=== PATIENT | female | born 1990 | race African-American/Black ===

== ENCOUNTER → 2016-03-24 | Outpatient (CLI) | payer OTHER ==
[2016-03-24 17:31] LABS: CH 28.4; HDW 2.88; HGB 10.7 gm/dL (11.4-16.0); Hypochromasia Moderate; MCH 29.1 pg (25.0-35.0); MCHC 31.4 g/dL (31.0-37.0); MCV 92.5 fL (80.0-100.0); Mean Platelet Volume 9.2; RBC 3.67 m/uL (3.80-5.40); RDW 14.4 % (11.5-15.5); WBC 9.4 k/uL (3.8-10.6)
[2016-03-24 17:35] LABS: Glucose 101 mg/dL (74-99); Non-African American GFR(MDRD) >60 (>60 ml/min/1.73 sqM)
[2016-03-24 18:05] LABS: Hepatitis B Surface Ag Index 0.05
[2016-03-25 07:23] LABS: HIV-1/HIV-2 Ab Screen NONREAC (NON REAC)
== END | disposition home or self-care (01) ==
LOC: LABWHC1 15:40
PROVIDERS: ATTEND Obstetrics & Gynecology
DX: O26.813 Pregnancy related exhaustion and fatigue, third trimester (principal); Z3A.00 Weeks of gestation of pregnancy not specified
CPT/HCPCS: 36415; 82565; 82947; 82950; 85027; 86762; 86780; 86850; 86900; 86901; 87340; 87389

== ENCOUNTER 2016-03-28 10:13 | Inpatient (IN) | payer OTHER ==
[2016-03-28] MEDS ORDERED: AMPICILLIN 2,000 MG in SODIUM CHLORIDE 0.9% 100 ML IVPB STA (10:47)
[2016-03-28] MEDS ORDERED: OXYTOCIN 10 UNIT/ML 1 ML VIAL IM PRN (10:47)
[2016-03-28] MEDS ORDERED: TERBUTALINE 1 MG/ML VIAL SQ PRN (10:47)
[2016-03-28] MEDS ORDERED: LIDOCAINE 1% (PF) 10 MG/ML (30 ML SDV) SQ PRN (10:47)
[2016-03-28] MEDS ORDERED: METHYLERGONOVINE 0.2 MG/ML 1 ML AMP IM PRN (10:47)
[2016-03-28] MEDS ORDERED: CARBOPROST TROMETHAMINE 250 MCG/ML 1 ML AMP IM PRN (10:47)
[2016-03-28] MEDS ORDERED: CITRIC ACID-SODIUM CITRATE 15 ML CUP PO ONE (10:51)
[2016-03-28] MEDS ORDERED: LACTATED RINGERS 1,000 ML IV SCH (11:00)
[2016-03-28 11:08] LABS: Basophils % (A) 0 %; CH 28.8; CHCM 31.7; Eosinophils # (A) 0.1 k/uL (0-0.7); Eosinophils % (A) 2 %; HCT 34.7 % (34.0-46.0); HDW 3.06; HGB 10.7 gm/dL (11.4-16.0); Hypochromasia Slight; Luc # (Auto) 0.23; Luc % (Auto) 3; Lymphocytes # (A) 2.2 k/uL (1.0-4.8); Lymphocytes % (A) 25 %; MCH 28.1 pg (25.0-35.0); MCHC 30.8 g/dL (31.0-37.0); MCV 91.5 fL (80.0-100.0); Mean Platelet Volume 9.5; Monocytes # (A) 0.6 k/uL (0-1.0); Monocytes % (A) 6 %; Neutrophils # (A) 5.7 k/uL (1.3-7.7); Neutrophils % (A) 65 %; RBC 3.79 m/uL (3.80-5.40); RDW 14.8 % (11.5-15.5); WBC 8.8 k/uL (3.8-10.6); WBC (Perox) 9.26
[2016-03-28 11:13] VITALS: BMI 30.7
[2016-03-28] MEDS ORDERED: ceFAZolin 2 GM in SODIUM CHLORIDE 0.9% 100 ML IVPB ONE (11:28)
--- NOTE | 2016-03-28 12:05 | P.HPOB ---
History of Present Illness H&P Date: 03/28/16 Chief Complaint: Intrauterine at 39 weeks: Previous 2 Patient is a 25-year-old at 39 weeks 6 days gestation who arrives for repeat low transverse section. Her course had been, did buy her missing several appointments. She was scheduled for the section very late but all questions are answered for her prior to proceeding to the operating room and she is stable at this time. Her vital signs are stable and she is afebrile. Pertinent labs do include O+ blood type Rh antibody was negative rubella was immune. Hepatitis B surface antigen and group B strep were both negative. On physical exam her heart is regular, lungs are clear, extremities are without pain. Abdomen soft uterus is soft gravid. heart tones are in the 140s and are reactive. Assessment intrauterine at term with previous sections. Plan repeat low transverse section. Review of Systems All systems: negative Constitutional: Denies chills, Denies fever Eyes: denies blurred vision, denies pain Ears, nose, mouth and throat: Denies headache, Denies sore throat Cardiovascular: Denies chest pain, Denies shortness of breath Respiratory: Denies cough Gastrointestinal: Denies abdominal pain, Denies diarrhea, Denies nausea, Denies vomiting Genitourinary: Denies dysuria, Denies hematuria Musculoskeletal: Denies myalgias Integumentary: Denies pruritus, Denies rash Neurological: Denies numbness, Denies weakness Psychiatric: Denies anxiety, Denies depression Endocrine: Denies fatigue, Denies weight change Past Medical History Past Medical History: Asthma Additional Past Medical History / Comment(s): Chronic back History of Any Multi-Drug Resistant Organisms: MRSA Date of last positivie culture/infection: 08/09/15 MDRO Source:: VAGINAL ABSCESS Past Surgical History: Section Additional Past Surgical History / Comment(s): 3 Past Anesthesia/Blood Transfusion Reactions: No Reported Reaction Past Psychological History: Anxiety, Depression Smoking Status: Current every day smoker Past Alcohol Use History: None Reported, Rare Additional Past Alcohol Use History / Comment(s): Patient is a smoker of one half pack per day since she was 17 years of age. She denies any medical marijuana, marijuana, street drug use. She does drink alcohol on a rare basis. She currently lives with her boyfriend and her 3 children ages 32 through 5. Her children are currently staying with her mother. Past Drug Use History: None Reported - Past Family History Father Family Medical History: No Reported History Additional Family Medical History / Comment(s): Father is alive at age 46 with no major medical problems. Mother Family Medical History: No Reported History, Diabetes Mellitus, Thyroid Disorder Additional Family Medical History / Comment(s): Mother is alive at age 50 with history of diabetes, thyroid disorder, mood disorder. Brother(s) Additional Family Medical History / Comment(s): Patient has 3 brothers and one at age 5 from a 4 persaud accident. Sister(s) Additional Family Medical History / Comment(s): Patient has one sister with history of benign tumor removed from her knee, possible Damon's cyst. Medications and Allergies Allergies Allergy/AdvReac Type Severity Reaction Status Date / Time No Known Allergies Allergy Verified 03/28/16 10:41 Exam Osteopathic Statement: *. No significant issues noted on an osteopathic structural exam other than those noted in the History and Physical/Consult. - Vital Signs Vital signs: Vital Signs Temp Pulse Resp BP 03/28/16 10:41 97.2 F L 122 H 16 112/64 Intake and Output 03/27/16 03/28/16 03/28/16 22:59 06:59 14:59 Other: Weight 83.915 kg Patient Weight 03/29/16 06:59 Weight 83.915 kg - OBG Physical Exam Breast: both: normal (no masses) Abdomen: bowel sounds normal, no diffuse tenderness, no bruit present, no guarding noted, no hepatomegaly, no splenomegaly, no mass Vulva: both: normal Vagina: normal moisture, no discharge Cervix: no lesion, no discharge Uterus: normal size, normal contour Adnexa: both: normal Anus/Rectum: normal perianal skin, no rectal mass, no hemorrhoids, heme negative Results Result Diagrams: 03/28/16 10:40 Abnormal Lab Results - Last 24 Hours (Table) 03/28/16 Range/Units 10:40 RBC 3.79 L (3.80-5.40) m/uL Hgb 10.7 L (11.4-16.0) gm/dL MCHC 30.8 L (31.0-37.0) g/dL
[2016-03-28] MEDS ORDERED: ONDANSETRON 4 MG/2 ML VIAL ONE (12:16)
[2016-03-28] MEDS ORDERED: PHENYLEPHRINE-0.9% NACL SYG 1 MG/10 ML SYRINGE ONE (12:16)
[2016-03-28] MEDS ORDERED: KETOROLAC 30 MG/ML 1 ML VIAL ONE (12:16)
[2016-03-28] MEDS ORDERED: OXYTOCIN 10 UNIT/ML 1 ML VIAL IM ONE (12:16)
[2016-03-28] MEDS ORDERED: MORPHINE SULFATE (PF) 0.3 MG/0.3 ML SYR ONE (12:16)
[2016-03-28] MEDS ORDERED: NALBUPHINE 10 MG/ML AMPUL ONE (12:16)
[2016-03-28] MEDS ORDERED: ePHEDrine 50 MG/ML 1 ML AMP ONE (12:16)
[2016-03-28] MEDS ORDERED: NALBUPHINE 10 MG/ML AMPUL IV PRN (12:41)
[2016-03-28] MEDS ORDERED: MORPHINE SULFATE 4 MG/ML SYRINGE IVP PRN (12:41)
[2016-03-28] MEDS ORDERED: NALOXONE 0.4 MG/ML 1 ML VIAL IV PRN ×2 (12:41→13:30)
[2016-03-28] MEDS ORDERED: diphenhydrAMINE 50 MG/ML 1 ML VIAL IVP PRN ×3 (12:41→13:25)
[2016-03-28] MEDS ORDERED: KETOROLAC 30 MG/ML 1 ML VIAL IVP PRN ×2 (12:41→13:25)
[2016-03-28] MEDS ORDERED: ONDANSETRON 4 MG/2 ML VIAL IVP PRN ×2 (12:41→13:25)
--- NOTE | 2016-03-28 13:08 | P.OP ---
Date of Procedure: 03/28/16 Preoperative Diagnosis: Intrauterine at term previous sections Postoperative Diagnosis: Same with very firm scarring of the fascial layer and peritoneum bilateral ovarian cysts Procedure(s) Performed: Repeat low transverse section Anesthesia: spinal Surgeon: Gamaliel Kay Reconciling Clerk #1: Kieran Lu Estimated Blood Loss (ml): 800 IV fluids (ml): 1,500 Urine output (ml): 200 Pathology: other (Placenta) Condition: stable Disposition: floor Operative Findings: Significant scarring of the peritoneum and fascia making it difficult to create a opening large enough for the head. Ultimately we did use vacuum assist for delivery as well as incise the right rectus muscle to divided in the midline about 1 inch in length scores were 9 and 9 at one and 5 minutes and the weight was 7 lbs. 0 oz. this was a baby boy Description of Procedure: Patient was taken to the operating suite where a spinal anesthetic was found to be adequate. She was prepped and draped in the normal sterile fashion and placed in the dorsal supine position with leftward tilt. Initially a Pfannenstiel skin incision was made this incision was then carried through to underlying layer of the fascia was second knife back. She was then nicked in the midline and this opening was extended laterally with Rodgers scissors. Superior and inferior aspect of this incision were then grasped tented up and bluntly and sharply dissected off the rectus muscles significant scarring was noted and the fascia was very hard due to the scarring. Once this was accomplished rectus muscles were then divided the midline and sharp dissection through the peritoneum was made. This opening was then extended superiorly and inferiorly with good visualization of both bowel bladder. Bladder blade was then placed vesicouterine peritoneum was identified very low in the uterus therefore uterus was incised and this incision was and then entered bluntly with hemostat and was extended. Once accomplished attempt were made to deliver the head through this opening however due to tight fascia and musculature with peritoneum we were unable to fully deliver the baby's head. Therefore right rectus muscles what was incised and then vacuum was applied to baby's head it was pumped up into the green zone and with one pull no pop offs lasting less than 10 seconds we're able to deliver the head through the incision. Mouth nares were then bulb suctioned and nuchal cord 1 was easily reduced. Anterior and posterior shoulders were then delivered gentle downward upper traction followed by the remainder the baby. Baby was delivered from left occiput anterior position. Once this was accomplished umbilical cord was clamped and cut in usual fashion an nursery personnel was present to assume care. Placenta was then delivered intact and Pitocin was added to the IV. Uterus was then exteriorized cleared of clots and debris and closed in 2 layers with 0 Vicryl suture. Once excellent hemostasis was obtained blood and debris was suctioned from the posterior cul-de-sac and bilateral ovarian cysts were noted. Cyst on the right side was much larger. There is some question as to whether not these may be dermoids and will be needed to have another ultrasound . Uterus was then reinserted the abdomen and the peritoneal layer was closed with 0 Vicryl suture fascial layer was then closed with 0 Vicryl suture 3-0 Vicryl was used to reapproximate the skin and close the space we did do some undermined to allow the skin to be lax enough to be able to be closed and then was closed with 3-0 Vicryl in a Chacorta needle. Sponge, lap, needle counts were all correct 2. Patient was taken to the recovery room in stable and satisfactory condition.
[2016-03-28] MEDS ORDERED: diphenhydrAMINE 25 MG CAP PO PRN (13:25)
[2016-03-28] MEDS ORDERED: NALOXONE 0.4 MG/ML 10 ML VIAL IVP PRN (13:25)
[2016-03-28] MEDS ORDERED: ZOLPIDEM 5 MG TAB PO PRN (13:25)
[2016-03-28] MEDS ORDERED: SIMETHICONE 80 MG CHEWABLE PO PRN (13:25)
[2016-03-28] MEDS ORDERED: ACETAMINOPHEN TAB 325 MG TAB PO PRN (13:25)
[2016-03-28] MEDS ORDERED: Acetaminophen-Codeine 300-30mg TAB PO PRN (13:25)
[2016-03-28] MEDS ORDERED: diphenhydrAMINE 50 MG CAP PO PRN (13:25)
[2016-03-28] MEDS: METOCLOPRAMIDE 5 MG/ML 2 ML VIAL IVP PRN (18:01)
[2016-03-28] MEDS: LACTATED RINGERS 1,000 ML IV SCH (18:04)
[2016-03-28] MEDS: SENNOSIDES-DOCUSATE SODIUM 1 EACH TAB PO SCH (20:09)
[2016-03-29] MEDS: METOCLOPRAMIDE 5 MG/ML 2 ML VIAL IVP PRN (00:26)
[2016-03-29] MEDS: LACTATED RINGERS 1,000 ML IV SCH (06:35)
[2016-03-29] MEDS: OXYTOCIN 30 UNITS/500 ML NS 30 UNIT in SALINE 1 500ML.BAG IV SCH ×2 (06:36→06:37)
--- NOTE | 2016-03-29 08:09 | P.PNOBGPC ---
Subjective - Subjective Principal diagnosis: Postoperative day 1 Interval history: Patient is doing very well postop day 1 from a repeat section. She is ambulating and she is voiding. She is tolerating her diet. Will plan to increase her diet and switch her over to oral pain medicine today. All the questions are answered for her at this time. She is stable at this time. Her only real complaint is that she is sore. Patient reports: Reports appetite normal, Reports voiding normally : doing well Objective - Vital Signs Latest vital signs: Vital Signs Temp Pulse Resp BP Pulse Ox 03/29/16 04:00 98.3 F 83 16 120/71 03/29/16 00:03 97.4 F L 80 16 118/75 97 03/28/16 20:41 96.0 F L 75 18 116/74 98 03/28/16 17:00 97.4 F L 89 16 128/72 98 03/28/16 15:20 75 16 118/80 03/28/16 14:45 78 16 130/83 98 03/28/16 14:15 74 16 128/77 03/28/16 14:00 89 16 123/69 03/28/16 13:45 86 16 123/65 03/28/16 13:30 84 16 110/62 99 03/28/16 13:15 97.1 F L 95 16 112/61 03/28/16 10:41 97.2 F L 122 H 16 112/64 Intake and Output 03/28/16 03/29/16 03/29/16 22:59 06:59 14:59 Output Total 650 400 Balance -650 -400 Output: Urine 600 400 Uretheral (Sandhu) 100 Emesis 50 Other: # Voids 0 - Exam Lungs: bilateral: normal Chest: Normal S1, Normal S2 Extremities: Present: normal Abdomen: Present: normal appearance, soft. Absent: distention, tenderness Incision: Present: normal, dry, intact Uterus: Present: normal, firm - Labs Labs: Abnormal Lab Results - Last 24 Hours (Table) 03/28/16 Range/Units 10:40 RBC 3.79 L (3.80-5.40) m/uL Hgb 10.7 L (11.4-16.0) gm/dL MCHC 30.8 L (31.0-37.0) g/dL
[2016-03-29 08:10] LABS: Basophils % (A) 0 %; CH 28.5; CHCM 31.2; Eosinophils % (A) 1 %; HCT 26.9 % (34.0-46.0); HDW 3.02; Hypochromasia Moderate; Luc % (Auto) 3; Lymphocytes % (A) 12 %; MCH 29.8 pg (25.0-35.0); MCHC 32.4 g/dL (31.0-37.0); MCV 91.9 fL (80.0-100.0); Monocytes % (A) 5 %; Neutrophils % (A) 80 %; RBC 2.93 m/uL (3.80-5.40); RDW 14.7 % (11.5-15.5); WBC 10.1 k/uL (3.8-10.6); WBC (Perox) 11.02
[2016-03-29 08:11] LABS: Eosinophils # (A) 0.1 k/uL (0-0.7); Luc # (Auto) 0.25; Lymphocytes # (A) 1.2 k/uL (1.0-4.8); Monocytes # (A) 0.5 k/uL (0-1.0)
[2016-03-29 08:27] LABS: HGB 8.7 gm/dL (11.4-16.0)
[2016-03-29] MEDS: Acetaminophen-Codeine 300-30mg TAB PO PRN ×3 (08:56→22:03)
[2016-03-29] MEDS: SENNOSIDES-DOCUSATE SODIUM 1 EACH TAB PO SCH ×2 (08:57→20:05)
--- NOTE | 2016-03-29 15:17 | P.PN ---
Progress Note - Text Date: 03/29/2016 Time:[1451] The patient is status post section Vital signs stable VAS: 0-10 Patient has no complaints of pain. The patient incurred some minimal itching yesterday, this itching is now subsiding. Pain meds to be managed by service.
[2016-03-29] MEDS: IBUPROFEN 600 MG TAB PO PRN (18:15)
[2016-03-30] MEDS: IBUPROFEN 600 MG TAB PO PRN ×4 (02:38→22:44)
[2016-03-30] MEDS: Acetaminophen-Codeine 300-30mg TAB PO PRN ×4 (04:20→19:17)
[2016-03-30] MEDS: SENNOSIDES-DOCUSATE SODIUM 1 EACH TAB PO SCH ×2 (07:27→20:16)
[2016-03-30] MEDS: LACTATED RINGERS 1,000 ML IV SCH (07:45)
--- NOTE | 2016-03-30 08:35 | P.PNOBGPC ---
Subjective - Subjective Principal diagnosis: Postop day 2 Interval history: Overall patient is doing well. She is able to ambulate, and she is tolerating her diet. At this time she really voices no complaints. She is voiding without difficulty and was passing flatus yesterday but has not passed any flatus this morning. She is also not had a bowel movement. Vital signs are however stable and she is afebrile. On physical exam her heart is regular and her lungs are clear. Abdomen is soft uterus is firm below the umbilicus her incision is clean dry and intact and she does have good bowel sounds. Assessment postop day 2. Plan continue current care. Expect discharged home tomorrow Objective - Vital Signs Latest vital signs: Vital Signs Temp Pulse Pulse Resp BP BP Pulse Ox 03/30/16 07:37 98.3 F 90 15 134/78 95 03/29/16 23:40 98.3 F 100 16 125/74 97 03/29/16 16:00 98.7 F 112 H 16 114/68 97 03/29/16 11:41 97.5 F L 90 14 128/84 03/29/16 09:25 97.6 F 92 22 110/77 Intake and Output 03/29/16 03/30/16 03/30/16 22:59 06:59 14:59 Intake Total 300 Balance 300 Intake: Oral 300 Other: # Voids 1 1 1
[2016-03-30] MEDS: OXYTOCIN 30 UNITS/500 ML NS 30 UNIT in SALINE 1 500ML.BAG IV SCH ×2 (20:17→20:18)
[2016-03-31] MEDS: Acetaminophen-Codeine 300-30mg TAB PO PRN ×2 (00:33→08:27)
[2016-03-31] MEDS: SENNOSIDES-DOCUSATE SODIUM 1 EACH TAB PO SCH ×2 (08:27→20:18)
[2016-03-31] MEDS ORDERED: HYDROcodone/APAP 5-325MG 1 EACH TAB PO PRN (08:48)
[2016-03-31] MEDS ORDERED: BISACODYL 10 MG SUPP RECTAL PRN (08:49)
--- NOTE | 2016-03-31 08:51 | P.PNOBGPC ---
Subjective - Subjective Principal diagnosis: Postoperative day 3 Interval history: Patient reports increase in pain today and will she is passing flatus has not had a bowel movement. She is very apprehensive about going home until she's had a bowel movement. We will allow her to have to clock suppositories that she wishes. We'll change pain medicine to [place]. She was explained that the narcotics are constipating and may make her problem worse. But she needs to have better pain control and we'll plan to make that change. Her vital signs are otherwise stable and afebrile. Her heart is regular, lungs are clear abdomen soft incisions intact. There are bowel sounds noted possibly slightly diminished from yesterday but certainly are present. Assessment postop day 3. Plan continue care change the pain medicine on getting up and bleeding more. We 'll also plan to use Dulcolax suppository should she desire. Objective - Vital Signs Latest vital signs: Vital Signs Temp Pulse Pulse Resp BP BP Pulse Ox 03/31/16 08:00 97.5 F L 87 16 127/83 98 03/31/16 00:00 98.7 F 92 18 L 16 129/67 03/30/16 15:51 98.1 F 88 15 129/83 Intake and Output 03/30/16 03/31/16 03/31/16 22:59 06:59 14:59 Intake Total 1500 700 Balance 1500 700 Intake: Oral 1500 700 Other: Voiding Method Toilet Toilet # Voids 3 3 - Exam Lungs: bilateral: normal Chest: Normal S1, Normal S2 Extremities: Present: normal Abdomen: Present: normal appearance, soft. Absent: distention, tenderness Incision: Present: normal, dry, intact Uterus: Present: normal, firm
[2016-03-31] MEDS: IBUPROFEN 600 MG TAB PO PRN (11:53)
[2016-03-31] MEDS: HYDROcodone/APAP 5-325MG 1 EACH TAB PO PRN ×3 (13:09→22:50)
[2016-04-01] MEDS: HYDROcodone/APAP 5-325MG 1 EACH TAB PO PRN (08:11)
[2016-04-01] MEDS: SENNOSIDES-DOCUSATE SODIUM 1 EACH TAB PO SCH (08:12)
--- NOTE | 2016-04-01 08:17 | P.DS ---
Providers Date of admission: 03/28/16 10:13 Expected date of discharge: 04/01/16 Attending physician: Gamaliel Kay Primary care physician: Stated None - Discharge Diagnosis(es) (1) Status post repeat low transverse section Current Visit: Yes Status: Acute (2) UTI (urinary tract infection) Current Visit: Yes Status: Acute Hospital Course: Patient presented for repeat low transverse underwent this procedure without crepitation. Today she says that she feels that she has a bladder infection, hurts to urinate. I'll treat her with Bactrim DS 1 twice daily for 3 days. Her pain is well-controlled and she is tolerating regular diet. Ambulating and voiding also did have a bowel movement yesterday. She denies nausea, vomiting, chest pain, shortness of breath or calf pain. She'll be discharged home postoperative day #4 in stable condition to follow-up with Dr. Kay in 1 week. Plan - Discharge Summary New Discharge Prescriptions: HYDROcodone/APAP 5-325MG [[place] 5-325] 1 tab PO Q4HR PRN #30 tab PRN Reason: Pain Ibuprofen [Motrin] 600 mg PO Q6HR PRN #30 tab PRN Reason: Pain Sulfamethox-Tmp 800-160Mg [Bactrim DS 800-160 mg] 1 each PO BID #6 tab Discharge Medication List [id number] Acid [-U Capsule] 1 each PO DAILY #100 cap 08/08 [Rx] HYDROcodone/APAP 5-325MG [[place] 5-325] 1 tab PO Q4HR PRN #30 tab 03/31/16 [Rx] Ibuprofen [Motrin] 600 mg PO Q6HR PRN #30 tab 03/31/16 [Rx] Sulfamethox-Tmp 800-160Mg [Bactrim DS 800-160 mg] 1 each PO BID #6 tab 04/01/16 [Rx] Follow up Appointment(s)/Referral(s): Gamaliel Kay DO [Doctor of Osteopathic Medicine] - 1 Week Activity/Diet/Wound Care/Special Instructions: No heavy lifting, limit stairs and driving and pelvic rest. If any high temperatures, heavy bleeding, or severe pain call my office Discharge Disposition: HOME SELF-CARE
[2016-04-01] MEDS ORDERED: SULFAMETHOX-TMP 800-160MG 1 EACH TAB PO SCH (09:00)
[2016-04-01 15:49] VITALS: BP 137/85; PULSE 80; RESP 17; TEMP 98.1
== END 2016-04-01 16:04 | disposition home or self-care (01) | DRG 765 ==
LOC: 4FBP 10:13
PROVIDERS: ADMIT Obstetrics & Gynecology; ATTEND Obstetrics & Gynecology
PROC: 10D00Z1 Extraction of Products of Conception, Low, Open Approach (ICD-10-PCS; principal; 2016-03-28 12:00)
DX: O34.211 Maternal care for low transverse scar from previous cesarean delivery (principal); O86.20 Urinary tract infection following delivery, unspecified; F17.200 Nicotine dependence, unspecified, uncomplicated; Z37.0 Single live birth; O99.334 Smoking (tobacco) complicating childbirth; Z3A.39 39 weeks gestation of pregnancy; O69.81X0 Labor and delivery complicated by cord around neck, without compression, not applicable or unspecified
CPT/HCPCS: 85025; 86850; 86900; 86901; 88307

== ENCOUNTER → 2016-05-13 | Outpatient (CLI) | payer OTHER ==
--- NOTE | 2016-05-13 16:39 | US ---
EXAMINATION TYPE: US pelvic complete DATE OF EXAM: 05/13/2016 4:02 PM COMPARISON: NONE CLINICAL HISTORY: [place] Ovarian Cyst N83.201. pain TECHNIQUE: Transabdominal (TA) Date of LMP: unknown; 6 weeks post EXAM MEASUREMENTS: Uterus: 10.4 x 5.7 x 6.6 cm Endometrial Stripe: 0.7 cm Right Ovary: 3.5 x 2.2 x 3.5 cm Left Ovary: 5.6 x 3.3 x 5.6 cm 1. Uterus: Anteverted Bulky post uterus 2. Endometrium: wnl 3. Right Ovary: wnl 4. Left Ovary: 3.8 x 2.6 x 3.9 cm complex cyst 5. Bilateral Adnexa: wnl 6. Posterior cul-de-sac: wnl Bulky post uterus. Complex left ovarian cyst as noted above. Patient opted not to have TV at this time IMPRESSION: Mixed echo left ovarian cyst may represent hemorrhagic cyst, consider follow-up
== END | disposition home or self-care (01) ==
LOC: RADUSWWP 15:41
PROVIDERS: ATTEND Obstetrics & Gynecology
DX: N83.202 Unspecified ovarian cyst, left side (principal); N83.201 Unspecified ovarian cyst, right side
CPT/HCPCS: 76856

== ENCOUNTER → 2016-08-11 | Outpatient (CLI) | payer OTHER ==
--- NOTE | 2016-08-11 10:34 | US ---
EXAMINATION TYPE: US pelvic complete DATE OF EXAM: 08/11/2016 COMPARISON: US CLINICAL HISTORY: N83.20 Prev Left Ovarian Process. Follow up left ovarian cyst, pelvic pain, 5, para 4, history of TECHNIQUE: Transabdominal (TA) Date of LMP: Patient unsure of LMP EXAM MEASUREMENTS: Uterus: 12.1 x 4.5 x 6.0 cm Endometrial Stripe: 0.8 cm Right Ovary: 2.7 x 1.9 x 1.8 cm Left Ovary: 3.5 x 1.9 x 3.8 cm 1. Uterus: anteverted, slightly enlarged at 12.0cm, slightly heterogeneous 2. Endometrium: appears wnl 3. Right Ovary: wnl 4. Left Ovary: wnl 5. Bilateral Adnexa: wnl 6. Posterior cul-de-sac: wnl IMPRESSION: 1. Normal pelvic ultrasound.
== END | disposition home or self-care (01) ==
LOC: RADUSWWP 09:56
PROVIDERS: ATTEND Obstetrics & Gynecology
DX: N83.202 Unspecified ovarian cyst, left side (principal)
CPT/HCPCS: 76856

== ENCOUNTER 2017-10-04 10:19 | Inpatient (IN) | payer OTHER ==
[2017-10-04] MEDS ORDERED: ceFAZolin IN SWFI 2 GM/20 ML SYRINGE IVP ONE (10:40)
[2017-10-04] MEDS ORDERED: CITRIC ACID-SODIUM CITRATE 15 ML CUP PO ONE (10:40)
[2017-10-04 11:01] VITALS: BMI 29.4
[2017-10-04] MEDS: LACTATED RINGERS 1,000 ML IV SCH ×3 (11:07→20:57)
[2017-10-04 11:13] LABS: Anisocytosis Slight; Basophils % (A) 0 %; Eosinophils # (A) 0.1 k/uL (0-0.7); Eosinophils % (A) 2 %; HCT 39.7 % (34.0-46.0); Hypochromasia Marked; Lymphocytes # (A) 2.1 k/uL (1.0-4.8); Lymphocytes % (A) 33 %; MCH 27.6 pg (25.0-35.0); MCHC 30.3 g/dL (31.0-37.0); MCV 91.1 fL (80.0-100.0); Mean Platelet Volume 8.7; Monocytes # (A) 0.3 k/uL (0-1.0); Monocytes % (A) 5 %; Neutrophils # (A) 3.7 k/uL (1.3-7.7); Neutrophils % (A) 58 %; Platelet Count 127 k/uL (150-450); RBC 4.35 m/uL (3.80-5.40); RDW 16.8 % (11.5-15.5); WBC 6.3 k/uL (3.8-10.6)
[2017-10-04] MEDS ORDERED: NALBUPHINE 10 MG/ML VIAL (10ML MDV) ONE (12:11)
[2017-10-04] MEDS ORDERED: ePHEDrine SULFATE/0.9% NACL/PF 50 MG/5 ML SYRINGE IV ONE (12:11)
[2017-10-04] MEDS ORDERED: ONDANSETRON 4 MG/2 ML VIAL ONE (12:11)
[2017-10-04] MEDS ORDERED: OXYTOCIN 10 UNIT/ML 1 ML VIAL ONE (12:11)
[2017-10-04] MEDS ORDERED: MORPHINE SULFATE (PF) 0.3 MG/0.3 ML SYR ONE (12:11)
[2017-10-04] MEDS ORDERED: diphenhydrAMINE 50 MG/ML 1 ML VIAL IVP PRN ×2 (12:58)
[2017-10-04] MEDS ORDERED: ONDANSETRON 4 MG/2 ML VIAL IVP PRN (12:58)
[2017-10-04] MEDS ORDERED: diphenhydrAMINE 50 MG CAP PO PRN (12:58)
[2017-10-04] MEDS ORDERED: ZOLPIDEM 5 MG TAB PO PRN (12:58)
[2017-10-04] MEDS ORDERED: diphenhydrAMINE 25 MG CAP PO PRN (12:58)
[2017-10-04] MEDS ORDERED: METOCLOPRAMIDE 5 MG/ML 2 ML VIAL IVP PRN (12:58)
[2017-10-04] MEDS ORDERED: ACETAMINOPHEN TAB 325 MG TAB PO PRN (12:58)
[2017-10-04] MEDS ORDERED: MEASLES-MUMPS-RUBELLA VACC/PF 12,500 UNIT/0.5 ML VIAL SQ ONE (12:58)
[2017-10-04] MEDS ORDERED: NALOXONE 0.4 MG/ML 1 ML VIAL IV PRN ×2 (12:58→13:34)
--- NOTE | 2017-10-04 13:03 | P.HPOB ---
History of Present Illness H&P Date: 10/04/17 Chief Complaint: Treatment at term: Previous section: Family planning Patient is a 27-year-old at 39 weeks gestation who arrives for repeat section. She's had 4 prior section so she is acutely aware of increased risk for bladder injury and other injuries secondary to scar tissue. Risks/benefits/alternatives were again reviewed with the patient in detail and all questions were answered for her prior to proceeding to the operating room. The Precis course itself has been generally unremarkable and she is feeling well at this time. Her only issue realistically was late for care and having to babies relatively close together. Past Medical History Past Medical History: Asthma Additional Past Medical History / Comment(s): Chronic back History of Any Multi-Drug Resistant Organisms: MRSA Date of last positivie culture/infection: 08/09/15 MDRO Source:: VAGINAL ABSCESS Past Surgical History: Section Additional Past Surgical History / Comment(s): 4 Past Anesthesia/Blood Transfusion Reactions: No Reported Reaction Past Psychological History: Anxiety, Depression Additional Psychological History / Comment(s): history of cutting, states it was a long time ago Smoking Status: Current every day smoker Past Alcohol Use History: Rare Additional Past Alcohol Use History / Comment(s): Patient is a smoker of one half pack per day since she was 17 years of age. She denies any medical marijuana, marijuana, street drug use. She does drink alcohol on a rare basis. She currently lives with her boyfriend and her 4 children. Her children are currently staying with her mother. Past Drug Use History: None Reported - Past Family History Father Family Medical History: No Reported History Additional Family Medical History / Comment(s): Father is alive at age 46 with no major medical problems. Mother Family Medical History: Diabetes Mellitus, Thyroid Disorder Additional Family Medical History / Comment(s): Mother is alive at age 50 with history of diabetes, thyroid disorder, mood disorder. Brother(s) Additional Family Medical History / Comment(s): Patient has 3 brothers and one at age 5 from a 4 persaud accident. Sister(s) Additional Family Medical History / Comment(s): Patient has one sister with history of benign tumor removed from her knee, possible Damon's cyst. Medications and Allergies Home Medications Medication Instructions Recorded Confirmed Type Albuterol Inhaler [Ventolin Hfa 1 - 2 puff INHALATION RT-Q6H PRN 10/04/17 History Inhaler] Allergies Allergy/AdvReac Type Severity Reaction Status Date / Time No Known Allergies Allergy Verified 03/28/16 10:41 Exam Osteopathic Statement: *. No significant issues noted on an osteopathic structural exam other than those noted in the History and Physical/Consult. Vital Signs Temp Pulse Resp BP Pulse Ox 10/04/17 10:24 98.1 F 107 H 16 111/77 100 Intake and Output 10/03/17 10/04/17 10/04/17 22:59 06:59 14:59 Other: Weight 80.286 kg - OBG Physical Exam Breast: both: normal (no masses) Abdomen: bowel sounds normal, no diffuse tenderness, no bruit present, no guarding noted, no hepatomegaly, no splenomegaly, no mass Vulva: both: normal Vagina: normal moisture, no discharge Cervix: no lesion, no discharge Uterus: normal size, normal contour Adnexa: both: normal Anus/Rectum: normal perianal skin, no rectal mass, no hemorrhoids, heme negative Results Result Diagrams: 10/04/17 11:00 Abnormal Lab Results - Last 24 Hours (Table) 10/04/17 Range/Units 11:00 MCHC 30.3 L (31.0-37.0) g/dL RDW 16.8 H (11.5-15.5) % Plt Count 127 L (150-450) k/uL
--- NOTE | 2017-10-04 13:06 | P.OP ---
Date of Procedure: 10/04/17 Preoperative Diagnosis: Intrauterine at term: Previous section: Family planning Postoperative Diagnosis: Same Procedure(s) Performed: Repeat low transverse section with partial bilateral salpingectomy Anesthesia: spinal Surgeon: Gamaliel Kay Meterman #1: Angeline Canchola Estimated Blood Loss (ml): 600 IV fluids (ml): 1,400 Urine output (ml): 100 Pathology: none sent Condition: stable Disposition: floor Operative Findings: Male scores of 8 and 9 at one and 5 minutes respectively and the weight was 7 lbs. 13 oz. Description of Procedure: Patient was taken to the operating suite where a spinal anesthetic was found be adequate. She was prepped and draped in the normal sterile fashion and placed in the dorsal supine position with leftward tilt. Initially a Pfannenstiel skin incision was made this incision was then carried through to the underlying layer of the fashion with the second knife. Fascia was then nicked in the midline and this opening was extended laterally with Rodgers scissors. Superior and inferior aspect of this incision were then grasped tented up and bluntly and sharply dissected off the rectus muscles. Rectus muscles were then divided the midline and sharp dissection through the peritoneum was made. This opening was then extended superiorly and inferiorly with good visualization of both bowel bladder. It should be noted that there was significant amount of scar tissue in the peritoneum and fascial layers due to poor prior sections. Once the peritoneum was developed. Bladder blade was placed. It was noted the bladder appeared low but no clear defining vesicouterine peritoneum layer was identified therefore the incision was made a little higher than normal but still the lower uterine segment well above the bladder. This opening was then fully developed with a hemostat and the incision was extended bluntly. Head was then H medically delivered and mouth and nares were bulb suctioned. Anterior posterior shoulders were then delivered with gentle downward upper traction followed by the remainder the baby. Umbilical cord was then clamped cut usual fashion an nursery personnel was present to assume care. Placenta was then delivered intact and Pitocin was added to the IV. Uterus was then exteriorized cleared of clots and debris and closed in 1 layer with 0 Vicryl suture. Once excellent hemostasis was obtained attention was turned to the fallopian tubes. First the right tube than the left tube had a hemostat grasped on the fallopian tube approximately 3 cm from uterine cornu and a window was created in the mesosalpinx with Bovie cautery. 2 proximal and 2 distal 2-0 silk sutures were then placed and intervening 2 cm segment excised and tips cauterized. Blood and debris was then suctioned from the posterior cul -de-sac and the uterus was reinserted into the abdomen. Peritoneal layer was then approximated with 0 Vicryl suture fascial layer was closed with 0 Vicryl suture one layer of 3-0 Vicryl was placed in the deep subcuticular tissues reapproximate the skin and close space. Skin was then closed with ulices. Sponge, lap, needle counts all correct 2. Patient was then taken to the recovery room in stable and satisfactory condition.
[2017-10-04] MEDS ORDERED: MORPHINE SULFATE 4 MG/ML SYRINGE IVP PRN (13:34)
[2017-10-04] MEDS ORDERED: OXYTOCIN 20 UNITS/1000 ML NS 1,000 ML IV SCH (13:45)
[2017-10-04] MEDS: KETOROLAC 30 MG/ML 1 ML VIAL IVP PRN ×2 (14:34→20:55)
[2017-10-04] MEDS: SENNOSIDES-DOCUSATE SODIUM 1 EACH TAB PO SCH (20:43)
[2017-10-05] MEDS: HYDROcodone/APAP 7.5-325MG 1 EACH TAB PO PRN ×3 (01:39→18:51)
--- NOTE | 2017-10-05 06:03 | P.PNOBGPC ---
Subjective - Subjective Patient reports: Reports appetite normal, Reports voiding normally, Reports pain well controlled, Reports ambulating normally : doing well Objective - Vital Signs Latest vital signs: Vital Signs Temp Pulse Resp BP Pulse Ox 10/05/17 04:00 97.9 F 79 16 121/74 100 10/05/17 02:00 16 10/05/17 00:00 97.4 F L 62 16 122/79 98 10/04/17 22:00 16 98 10/04/17 20:30 97.4 F L 60 16 113/68 98 10/04/17 18:35 95 10/04/17 18:00 16 97 10/04/17 16:26 16 98 10/04/17 16:00 96.3 F L 51 L 16 111/68 98 10/04/17 15:02 97 F L 77 16 128/64 96 10/04/17 14:35 16 97 10/04/17 14:32 74 16 99/58 97 10/04/17 14:02 60 16 106/71 96 10/04/17 13:47 64 16 110/64 100 10/04/17 13:35 16 100 10/04/17 13:32 57 L 16 99/58 93 L 10/04/17 13:17 77 16 96/52 98 10/04/17 13:02 97.3 F L 16 99/58 97 10/04/17 10:24 98.1 F 107 H 16 111/77 100 Intake and Output 10/04/17 10/04/17 10/05/17 14:59 22:59 06:59 Intake Total 3600 200 Output Total 700 400 Balance 2900 -200 Intake: Intake, IV Titration 2200 Amount Lactated Ringers 1,000 ml 2200 @ 125 mls/hr IV .Q8H [facility] Rx#:[id number] Oral 200 Blood Product 1400 Output: Urine 100 400 Uretheral (Sandhu) 400 Estimated Blood Loss 600 Other: # Voids 200 1 Weight 80.286 kg - Exam Lungs: bilateral: normal Chest: Normal S1, Normal S2 Extremities: Present: normal Abdomen: Present: normal appearance, soft. Absent: distention, tenderness Incision: Present: normal, dry, intact Uterus: Present: normal, firm - Labs Labs: Abnormal Lab Results - Last 24 Hours (Table) 10/04/17 Range/Units 11:00 MCHC 30.3 L (31.0-37.0) g/dL RDW 16.8 H (11.5-15.5) % Plt Count 127 L (150-450) k/uL Assessment and Plan Assessment: Post operative day #1. Patient is resting without plates. Vital signs are stable and she is afebrile. Uterus is firm nontender and she is having normal lochia. My impression this is a normal postoperative course. Plan is to advance this patient's diet, check a CBC, encourage ambulation, and continue routine postoperative care. (1) Status post repeat low transverse section Current Visit: No Status: Acute Code(s): Z98.891 - HISTORY OF UTERINE SCAR FROM PREVIOUS SURGERY SNOMED Code(s): 581837251
[2017-10-05] MEDS: LACTATED RINGERS 1,000 ML IV SCH ×2 (06:52→12:14)
--- NOTE | 2017-10-05 08:14 | P.PN ---
Progress Note - Text Date: 10/05/2017 Time: 07:02 The patient is status post section Vital signs stable VAS: 0-10 Patient has no complaints of pain. The patient incurred some minimal itching yesterday, this itching is now subsiding. Pain meds to be managed by service.
[2017-10-05] MEDS: SENNOSIDES-DOCUSATE SODIUM 1 EACH TAB PO SCH ×2 (09:10→20:14)
[2017-10-05] MEDS: KETOROLAC 30 MG/ML 1 ML VIAL IVP PRN (09:16)
[2017-10-05 10:51] LABS: Anisocytosis Slight; Basophils % (A) 0 %; Eosinophils # (A) 0.1 k/uL (0-0.7); Eosinophils % (A) 2 %; HCT 32.7 % (34.0-46.0); Hypochromasia Moderate; Lymphocytes # (A) 1.2 k/uL (1.0-4.8); Lymphocytes % (A) 17 %; MCH 27.8 pg (25.0-35.0); MCHC 30.3 g/dL (31.0-37.0); MCV 91.6 fL (80.0-100.0); Mean Platelet Volume 9.7; Monocytes # (A) 0.3 k/uL (0-1.0); Monocytes % (A) 4 %; Neutrophils # (A) 5.3 k/uL (1.3-7.7); Neutrophils % (A) 76 %; Platelet Count 107 k/uL (150-450); RBC 3.57 m/uL (3.80-5.40); RDW 16.7 % (11.5-15.5)
[2017-10-05 10:59] LABS: HGB 9.9 gm/dL (11.4-16.0)
[2017-10-05] MEDS: IBUPROFEN 600 MG TAB PO PRN ×2 (16:22→21:15)
[2017-10-06] MEDS: HYDROcodone/APAP 7.5-325MG 1 EACH TAB PO PRN ×4 (02:16→22:46)
[2017-10-06] MEDS: IBUPROFEN 600 MG TAB PO PRN ×3 (05:56→20:06)
--- NOTE | 2017-10-06 07:25 | P.PNOBGPC ---
Subjective - Subjective Patient reports: Reports appetite normal, Reports voiding normally, Reports pain well controlled, Reports ambulating normally : doing well Objective - Vital Signs Latest vital signs: Vital Signs Temp Pulse Resp BP Pulse Ox 10/06/17 00:00 99 F 91 16 128/79 99 10/05/17 16:00 98.1 F 89 18 124/75 99 10/05/17 12:00 98.0 F 80 18 130/72 98 10/05/17 10:00 18 10/05/17 08:00 97.9 F 89 18 115/70 100 Intake and Output 10/05/17 10/06/17 10/06/17 22:59 06:59 14:59 Intake Total 200 Balance 200 Intake: Oral 200 Other: # Voids 1 - Exam Lungs: bilateral: normal Chest: Normal S1, Normal S2 Extremities: Present: normal Abdomen: Present: normal appearance, soft. Absent: distention, tenderness Incision: Present: normal, dry, intact Uterus: Present: normal, firm - Labs Labs: Abnormal Lab Results - Last 24 Hours (Table) 10/05/17 Range/Units 10:38 RBC 3.57 L (3.80-5.40) m/uL Hgb 9.9 L D (11.4-16.0) gm/dL Hct 32.7 L (34.0-46.0) % MCHC 30.3 L (31.0-37.0) g/dL RDW 16.7 H (11.5-15.5) % Plt Count 107 L (150-450) k/uL Assessment and Plan Assessment: Post operative day #2. Patient is resting without new complaints, she however continues to have significant discomfort from her incision. Vital signs are stable and she is afebrile. Uterus is firm and appropriately tender. Patient is tolerating regular diet and urinating without difficulty. CBC yesterday was normal. Plan is to continue routine postoperative care and will need to stay inpatient probably for another day due to pain issues. (1) Status post repeat low transverse section Current Visit: No Status: Acute Code(s): Z98.891 - HISTORY OF UTERINE SCAR FROM PREVIOUS SURGERY SNOMED Code(s): 565958340
[2017-10-06] MEDS: SENNOSIDES-DOCUSATE SODIUM 1 EACH TAB PO SCH ×2 (07:57→20:06)
[2017-10-07] MEDS: IBUPROFEN 600 MG TAB PO PRN ×3 (02:08→14:47)
[2017-10-07] MEDS: HYDROcodone/APAP 7.5-325MG 1 EACH TAB PO PRN ×2 (04:44→10:56)
[2017-10-07] MEDS: SENNOSIDES-DOCUSATE SODIUM 1 EACH TAB PO SCH (07:47)
[2017-10-07 10:59] VITALS: BP 131/88; PULSE 76; RESP 18; TEMP 98.5
--- NOTE | 2017-10-07 11:29 | P.DS ---
Providers Date of admission: 10/04/17 10:19 Expected date of discharge: 10/07/17 Attending physician: Gamaliel Kay Primary care physician: Stated None Hospital Course: This is a 27-year-old female 6 para 4 at 39-0/7 weeks who presented for repeat scheduled section with tubal ligation. She underwent a repeat low transverse section with bilateral partial salpingectomy on 2017. Her course has been uncomplicated. She did have some issues with pain control that have improved. Lochia is decreasing. She has passed flatus and bowel movement. Pain is fairly well controlled with ibuprofen and [place]. Vital signs are stable. Abdomen is soft with positive bowel sounds 4. Incision is clean dry and intact. Extremities show negative Homans. Impression is status post repeat section with bilateral partial salpingectomy postoperative day #3. Plan is to discharge home today. Routine and postoperative instructions are given. She will be given a prescription for a breast pump. She will also be given prescriptions for [place] and ibuprofen. She has signed the [facility] opioid start taking consent form and maps will be checked prior to prescribing. She is advised to follow up with Dr. Kay in the office in approximately one week and in 6 weeks for a check. Routine postoperative and instructions are given. She is advised to call the office if she has any further questions or concerns prior to her appointment time. Procedures: Repeat low transverse section with bilateral partial salpingectomy on 10/04/2017 Patient Condition at Discharge: Stable Plan - Discharge Summary New Discharge Prescriptions: New HYDROcodone/APAP 7.5-325MG [[place] 7.5-325] 1 each PO Q6H PRN #28 tab PRN Reason: Severe Pain Ibuprofen [Motrin] 600 mg PO Q6HR PRN #60 tab PRN Reason: Mild Pain Or Fever >= 100.5 Continue Albuterol Inhaler [Ventolin Hfa Inhaler] 1 - 2 puff INHALATION RT-Q6H PRN PRN Reason: Dyspnea Discharge Medication List Albuterol Inhaler [Ventolin Hfa Inhaler] 1 - 2 puff INHALATION RT-Q6H PRN [History] HYDROcodone/APAP 7.5-325MG [[place] 7.5-325] 1 each PO Q6H PRN #28 tab 10/07/17 [ Rx] Ibuprofen [Motrin] 600 mg PO Q6HR PRN #60 tab 10/07/17 [Rx] Follow up Appointment(s)/Referral(s): Gamaliel Kay DO [Doctor of Osteopathic Medicine] - 1 Week Activity/Diet/Wound Care/Special Instructions: Instructions 1. Do not begin any exercise program for 3 weeks. 2. Do not resume sexual relations for 3 weeks or longer if uncomfortable. 3. You may take tub baths or showers at any time. 4. You may use tampons if desired after 3 weeks. 5. Keep the area of episiotomy (stitches) clean and dry. 6. If you are not nursing, wear a good fitting, supportive bra during the day and limit fluid intake for at least 1 week to prevent breast engorgement. 7. Call the office, [phone], within the next week to make appointment for your 6 week checkup if it has not already been made. 8. Report any of the following occurrences to the doctor promptly: a. Heavy, excessive bleeding b. Chills, fever c. Burning or frequency of urination d. Pain or redness and breasts if nursing e. Increasing pain or swelling in episiotomy (stitches). In addition to the above instructions, the following additional should be followed: 1. No heavy lifting or straining (exercising) until after 6 week checkup. 2. Keep abdominal incision clean and dry: You may wear a dressing if more comfortable. 3. Make office appointment for 10 days after going home or as instructed by her doctor. Discharge Disposition: HOME SELF-CARE
== END 2017-10-07 15:00 | disposition home or self-care (01) | DRG 766 ==
LOC: 4FBP 10:19
PROVIDERS: ADMIT Obstetrics & Gynecology; ATTEND Obstetrics & Gynecology
PROC: 0UB70ZZ Excision of Bilateral Fallopian Tubes, Open Approach (ICD-10-PCS; 2017-10-04)
PROC: 00HU33Z Insertion of Infusion Device into Spinal Canal, Percutaneous Approach (ICD-10-PCS; 2017-10-04)
PROC: 3E0R3BZ Introduction of Anesthetic Agent into Spinal Canal, Percutaneous Approach (ICD-10-PCS; 2017-10-04)
PROC: 10D00Z1 Extraction of Products of Conception, Low, Open Approach (ICD-10-PCS; principal; 2017-10-04 12:24)
DX: O34.211 Maternal care for low transverse scar from previous cesarean delivery (principal); Z37.0 Single live birth; O99.334 Smoking (tobacco) complicating childbirth; F17.210 Nicotine dependence, cigarettes, uncomplicated; O99.344 Other mental disorders complicating childbirth; F32.9 Major depressive disorder, single episode, unspecified; F41.9 Anxiety disorder, unspecified; O99.52 Diseases of the respiratory system complicating childbirth; J45.909 Unspecified asthma, uncomplicated; Z16.24 Resistance to multiple antibiotics; Z3A.39 39 weeks gestation of pregnancy; O99.62 Diseases of the digestive system complicating childbirth; K21.9 Gastro-esophageal reflux disease without esophagitis; Z30.2 Encounter for sterilization; Z91.5 Personal history of self-harm; Z83.3 Family history of diabetes mellitus; Z81.8 Family history of other mental and behavioral disorders; Z83.49 Family history of other endocrine, nutritional and metabolic diseases
CPT/HCPCS: 85025; 86850; 86900; 86901; 88302

== ENCOUNTER 2019-08-03 12:59 | Emergency (ER) | payer OTHER ==
[2019-08-03 13:06] VITALS: BP 148/75; PULSE 92; RESP 18; TEMP 98.3
[2019-08-03] MEDS ORDERED: KETOROLAC 60 MG/2 ML VIAL IM STA (13:21)
[2019-08-03] MEDS ORDERED: ORPHENADRINE 30 MG/ML 2 ML VIAL IM STA (13:21)
--- NOTE | 2019-08-03 13:27 | ED ---
Back Pain HPI - General Source: patient, RN notes reviewed Mode of arrival: ambulatory Limitations: no limitations <Julio Martins - Last Filed: 08/03/19 13:26> <Cristina Douglas - Last Filed: 08/03/19 14:43> - General Chief Complaint: Back Pain/Injury Stated Complaint: back pain Time Seen by Provider: 08/03/19 13:16 - History of Present Illness Initial Comments: 29-year-old female presents emergency Department chief complaint of low back pain. Patient states pain is worsened over the week. States earlier in the week she moved quickly to grab pill that was falling. She states she twinge her back. Patient does have history of back pain she denies any bowel complaints Retention. She's been working through her symptoms which haven't making symptoms worse. She is employed abdominal pain no dysuria no hematuria denies any chance . Patient has not taken any medications for pain. 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 (Julio Martins) - Related Data Home Medications Medication Instructions Recorded Confirmed Albuterol Inhaler (Mhu) [Ventolin 1 - 2 puff INHALATION RT-Q6H PRN 10/04/17 10/04/17 Hfa Inhaler (Mhu)] Previous Rx's Medication Instructions Recorded HYDROcodone/APAP 7.5-325MG [[place]ayer 1 each PO Q6H PRN #28 tab 10/07/17 7.5-325] Ibuprofen [Motrin] 600 mg PO Q6HR PRN #60 tab 10/07/17 Allergies Allergy/AdvReac Type Severity Reaction Status Date / Time No Known Allergies Allergy Verified 08/03/19 13:01 Review of Systems ROS Other: All systems not noted in ROS Statement are negative. <Julio Martisn - Last Filed: 08/03/19 13:26> ROS Other: All systems not noted in ROS Statement are negative. <Cristina Douglas - Last Filed: 08/03/19 14:43> ROS Statement: Those systems with pertinent positive or pertinent negative responses have been documented in the HPI. Past Medical History Past Medical History: Asthma Additional Past Medical History / Comment(s): Chronic back History of Any Multi-Drug Resistant Organisms: MRSA Date of last positivie culture/infection: 08/09/15 MDRO Source:: VAGINAL ABSCESS Past Surgical History: Section Additional Past Surgical History / Comment(s): 4 Past Anesthesia/Blood Transfusion Reactions: No Reported Reaction Past Psychological History: Anxiety, Depression Smoking Status: Current every day smoker Past Alcohol Use History: Rare Past Drug Use History: None Reported - Past Family History Father Family Medical History: No Reported History Additional Family Medical History / Comment(s): Father is alive at age 46 with no major medical problems. Mother Family Medical History: Diabetes Mellitus, Thyroid Disorder Additional Family Medical History / Comment(s): Mother is alive at age 50 with history of diabetes, thyroid disorder, mood disorder. Brother(s) Additional Family Medical History / Comment(s): Patient has 3 brothers and one at age 5 from a 4 persaud accident. Sister(s) Additional Family Medical History / Comment(s): Patient has one sister with history of benign tumor removed from her knee, possible Damon's cyst. <Julio Martins - Last Filed: 08/03/19 13:26> General Exam Limitations: no limitations General appearance: alert, in no apparent distress Head exam: Present: atraumatic, normocephalic, normal inspection Eye exam: Present: normal appearance, PERRL, EOMI. Absent: scleral icterus, conjunctival injection, periorbital swelling ENT exam: Present: normal exam, normal oropharynx, mucous membranes moist Neck exam: Present: normal inspection, full ROM. Absent: tenderness, meningismus, lymphadenopathy Respiratory exam: Present: normal lung sounds bilaterally. Absent: respiratory distress, wheezes, rales, rhonchi, stridor Cardiovascular Exam: Present: regular rate, normal rhythm, normal heart sounds. Absent: systolic murmur, diastolic murmur, rubs, gallop, clicks GI/Abdominal exam: Present: soft, normal bowel sounds. Absent: distended, tenderness, guarding, rebound, rigid Back exam: Present: normal inspection, full ROM, tenderness, muscle spasm, paraspinal tenderness, vertebral tenderness. Absent: CVA tenderness (R), CVA tenderness (L) Neurological exam: Present: alert, oriented X3, CN II-XII intact, reflexes normal. Absent: motor sensory deficit Skin exam: Present: warm, dry, intact, normal color. Absent: rash <Julio Martins - Last Filed: 08/03/19 13:26> <Cristina Douglas - Last Filed: 08/03/19 14:43> - General Exam Comments Initial Comments: General: The patient is awake and alert, in no distress, and does not appear acutely ill. Eye: Pupils are equal, round and reactive to light, extra-ocular movements are intact. No nystagmus. There is normal conjunctiva bilaterally. No signs of icterus. GI: NO CVA tenderness. Musculoskeletal: Pain to palpation fo the right lower paravertebral muscles. (- ) SLR b/l. Normal ROM, no tenderness of the LE b/l. Strength 5/5 of the LE b/l. Sensation intact of the LE including the saddle region. Neurological: A&O x 3. CN II-XII intact, There are no obvious motor or sensory deficits. Coordination appears grossly intact. Speech is normal. Skin: Skin is warm and dry and no rashes or lesions are noted. No lesions in area of pain. Psychiatric: Cooperative, appropriate mood & affect, normal judgment. (Cristina Douglas) Course <Cristina Douglas - Last Filed: 08/03/19 14:43> Vital Signs 08/03/19 13:01 Temperature 98.3 F Pulse Rate 92 Respiratory 18 Rate Blood Pressure 148/75 O2 Sat by Pulse 99 Oximetry - Reevaluation(s) Reevaluation #1: Signed out to me, Cristina Douglas PA-C at 2PM, urinalysis was penidng. Disposition at that time by original provider was mechanical back pain to be treated symptomatically with urinalysis to r/o urinary/renal cause (RBC/WBC), UA is unremarkable. Patient states that her discomfort has improved. Patient recommended rest for today and tomorrow, symptomatic treatment with heat/ice alternation and taking ibuprofen and tylenol. 08/03/19 14:38 (Cristina Douglas) Medical Decision Making - Lab Data Lab Results 08/03/19 08/03/19 Range/Units 13:51 13:51 Urine Color Yellow Urine Appearance Clear (Clear) Urine pH 5.0 (5.0-8.0) Ur Specific [place] 1.025 (1.001-1.035) Urine Protein Negative (Negative) Urine Glucose (UA) Negative (Negative) Urine Ketones Negative (Negative) Urine Blood Negative (Negative) Urine Nitrite Negative (Negative) Urine Bilirubin Negative (Negative) Urine Urobilinogen <2.0 (<2.0) mg/dL Ur Leukocyte Esterase Negative (Negative) Urine HCG, Qual Not Detected (Not Detectd) Disposition <Julio Martins M - Last Filed: 08/03/19 13:26> Is patient prescribed a controlled substance at d/c from ED?: No Time of Disposition: 14:41 <Cristina Douglas - Last Filed: 08/03/19 14:43> Clinical Impression: Low back pain, Low back strain Disposition: HOME SELF-CARE Condition: Good Instructions (If sedation given, give patient instructions): Acute Low Back Pain (ED) Additional Instructions: Please use medication as discussed. Please follow-up with family doctor in the next 2 days. Please return to emergency room if the symptoms increase or worsen or for any other concerns. Referrals: None,Stated [Primary Care Provider] - 1-2 days
[2019-08-03 14:30] LABS: Color,Urine Yellow
[2019-08-03 14:31] LABS: Appearance,Urine Clear (Clear)
[2019-08-03 14:32] LABS: Protein,Urine Negative (Negative); Specific Gravity,Urine 1.025 (1.001-1.035)
[2019-08-03 14:33] LABS: Bilirubin,Urine Negative (Negative); Blood,Urine Negative (Negative); Glucose,Urine (UA) Negative (Negative); Ketones,Urine Negative (Negative); Leukocyte Esterase,Urine Negative (Negative); Nitrite,Urine Negative (Negative); Urobilinogen,Urine <2.0 mg/dL (<2.0)
== END 2019-08-03 15:06 | disposition home or self-care (01) ==
LOC: EC 12:59
DX: S39.012A Strain of muscle, fascia and tendon of lower back, initial encounter (principal); J45.909 Unspecified asthma, uncomplicated; F17.200 Nicotine dependence, unspecified, uncomplicated; Z86.14 Personal history of Methicillin resistant Staphylococcus aureus infection; Z79.899 Other long term (current) drug therapy; X50.9XXA Other and unspecified overexertion or strenuous movements or postures, initial encounter
CPT/HCPCS: 81003; 81025; 99283; 96372 ×2; J2360; J1885

== ENCOUNTER 2020-08-11 10:02 | Emergency (ER) | payer OTHER ==
[2020-08-11 10:05] VITALS: TEMP 98
[2020-08-11] MEDS ORDERED: KETOROLAC 15 MG/ML 1 ML VIAL IM STA (10:20)
--- NOTE | 2020-08-11 10:32 | ED ---
General Adult HPI - General Chief complaint: Extremity Problem,Nontraumatic Stated complaint: Rt Knee Pain Time Seen by Provider: 08/11/20 10:06 Source: patient, RN notes reviewed Mode of arrival: ambulatory Limitations: no limitations - History of Present Illness Initial comments: 30-year-old female with a past medical history of asthma, chronic back pain presents to the emergency room for a chief complaint of right knee pain. Patient reports she has had knee pain for 5 years. This has worsened in the past few months. 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 She therefore presented to the emergency room. Patient denies any fevers.Patient has no other complaints at this time including shortness of breath, chest pain, abdominal pain, nausea or vomiting, headache, or visual changes. - Related Data Home Medications Medication Instructions Recorded Confirmed Acetaminophen Tab [Tylenol] 650 mg PO Q4H PRN 08/11/20 08/11/20 Ibuprofen [Motrin Ib] 400 mg PO Q8H PRN 08/11/20 08/11/20 Allergies Allergy/AdvReac Type Severity Reaction Status Date / Time No Known Allergies Allergy Verified 08/11/20 10:43 Review of Systems ROS Statement: Those systems with pertinent positive or pertinent negative responses have been documented in the HPI. ROS Other: All systems not noted in ROS Statement are negative. Past Medical History Past Medical History: Asthma Additional Past Medical History / Comment(s): Chronic back History of Any Multi-Drug Resistant Organisms: MRSA Date of last positivie culture/infection: 08/09/15 MDRO Source:: VAGINAL ABSCESS Past Surgical History: Section Additional Past Surgical History / Comment(s): 4 Past Anesthesia/Blood Transfusion Reactions: No Reported Reaction Past Psychological History: Anxiety, Depression Smoking Status: Current every day smoker Past Alcohol Use History: Rare Past Drug Use History: None Reported - Past Family History Father Family Medical History: No Reported History Additional Family Medical History / Comment(s): Father is alive at age 46 with no major medical problems. Mother Family Medical History: Diabetes Mellitus, Thyroid Disorder Additional Family Medical History / Comment(s): Mother is alive at age 50 with history of diabetes, thyroid disorder, mood disorder. Brother(s) Additional Family Medical History / Comment(s): Patient has 3 brothers and one at age 5 from a 4 persaud accident. Sister(s) Additional Family Medical History / Comment(s): Patient has one sister with history of benign tumor removed from her knee, possible Damon's cyst. General Exam Limitations: no limitations General appearance: alert, in no apparent distress Head exam: Present: atraumatic, normocephalic, normal inspection Eye exam: Present: normal appearance, PERRL, EOMI. Absent: scleral icterus, conjunctival injection, periorbital swelling ENT exam: Present: normal exam, mucous membranes moist Neck exam: Present: normal inspection, full ROM. Absent: tenderness, meningismus, lymphadenopathy Respiratory exam: Present: normal lung sounds bilaterally. Absent: respiratory distress, wheezes, rales, rhonchi, stridor Cardiovascular Exam: Present: regular rate, normal rhythm, normal heart sounds. Absent: systolic murmur, diastolic murmur, rubs, gallop, clicks GI/Abdominal exam: Present: soft, normal bowel sounds. Absent: distended, tenderness, guarding, rebound, rigid Extremities exam: Present: tenderness (tenderness anterior right knee, ), normal capillary refill (cap refill < 2 seconds, DP Pulse 2+), other (sensation intact RLE). Absent: full ROM (90 degrees flexion of the right knee, full extension), pedal edema, joint swelling (no significant edema R knee), calf tenderness Course Vital Signs 08/11/20 10:02 Temperature 98.0 F Pulse Rate 80 Respiratory 18 Rate Blood Pressure 135/97 O2 Sat by Pulse 100 Oximetry Medical Decision Making - Medical Decision Making Presents for chronic knee pain 5 years. X-ray shows no acute fracture or dislocation. Patient will be referred to orthopedics. In the meantime she will take Motrin and Tylenol for pain and rest ice and elevate the knee. Disposition Clinical Impression: Knee pain, right Disposition: HOME SELF-CARE Condition: Good Instructions (If sedation given, give patient instructions): Knee Pain (ED) Additional Instructions: Take Motrin and Tylenol for pain. Rest ice and elevate the right knee. Follow- up with orthopedics in one to 2 days. Return to the emergency room for any worsening symptoms. Is patient prescribed a controlled substance at d/c from ED?: No Referrals: Get Szymanski MD [STAFF PHYSICIAN] - 1-2 days Time of Disposition: 11:05
--- NOTE | 2020-08-11 10:43 | XR ---
EXAMINATION TYPE: XR knee complete RT DATE OF EXAM: 08/11/2020 CLINICAL HISTORY: pain TECHNIQUE: Three views of the right knee are obtained. COMPARISON: None. FINDINGS: There is no acute fracture/dislocation. The tri-compartment joint spaces appear within no rmal limits. The overlying soft tissue appears unremarkable. IMPRESSION: There is no acute fracture or dislocation.ICD 10 NO FRACTURE, INITIAL EVALUATION
[2020-08-11 11:23] VITALS: BP 136/90; PULSE 67; RESP 16
== END 2020-08-11 11:22 | disposition home or self-care (01) ==
LOC: EC 10:02
DX: M25.561 Pain in right knee (principal); J45.909 Unspecified asthma, uncomplicated; F32.9 Major depressive disorder, single episode, unspecified; F41.9 Anxiety disorder, unspecified; F17.200 Nicotine dependence, unspecified, uncomplicated
CPT/HCPCS: 73562; 99283; 96372; J1885

== ENCOUNTER → 2020-11-20 | Outpatient (CLI) | payer OTHER | END | disposition home or self-care (01) | LOC: LABWHC1 12:20 | PROVIDERS: ATTEND Emergency Medicine | DX: Z20.822 Contact with and (suspected) exposure to COVID-19 (principal) | CPT/HCPCS: 87635 ==

== ENCOUNTER → 2020-11-21 | Outpatient (CLI) | payer OTHER | END | disposition home or self-care (01) | LOC: LABWHC1 15:16 | PROVIDERS: ATTEND Emergency Medicine | DX: Z20.822 Contact with and (suspected) exposure to COVID-19 (principal) | CPT/HCPCS: 87635 ==

== ENCOUNTER → 2021-02-10 | Outpatient (CLI) | payer OTHER | END | disposition home or self-care (01) | LOC: LABWHC1 12:01 | PROVIDERS: ATTEND Emergency Medicine | DX: Z20.822 Contact with and (suspected) exposure to COVID-19 (principal) | CPT/HCPCS: 87635 ==

== ENCOUNTER → 2021-02-11 | Outpatient (CLI) | payer OTHER | END | disposition home or self-care (01) | LOC: LABWHC1 12:54 | PROVIDERS: ATTEND Emergency Medicine | DX: Z03.818 Encounter for observation for suspected exposure to other biological agents ruled out (principal); Z20.822 Contact with and (suspected) exposure to COVID-19 | CPT/HCPCS: 87635 ==